=== PATIENT | female | born 1955 | race Caucasian/White ===

== ENCOUNTER 2023-09-06 15:26 | Emergency (ER) | payer MEDICARE, OTHER, SELFPAY ==
[2023-09-06 15:30] VITALS: BP 156/86; PULSE 67; RESP 16; TEMP 37; O2SAT 99; BMI 26.9
--- NOTE | 2023-09-06 15:41 | ED.SKABFB1 ---
HPI - Skin/Abscess/Foreign Bdy General Chief complaint: Skin/Abscess/Foreign Body Stated complaint: LUMP Time Seen by Provider: 09/06/23 15:28 Source: patient Mode of arrival: walk-in Limitations: no limitations History of Present Illness HPI narrative: Patient developed a small pustule to the right labia - lower aspect near the skin of the perineum. No systemic complaints such as fever or vomiting. She is concerned about a possible infection and whether or not it needs to be lanced. Related Data Previous Rx's ?Medication ?Instructions ?Recorded cephalexin 500 mg capsule 500 mg PO QID 7 days #28 caps 09/06/23 Allergies Allergy/AdvReac Type Severity Reaction Status Date / Time tetracycline Allergy Mild Rash Verified 09/06/23 15:30 Exam Narrative Exam Narrative: Nurses notes and vital signs reviewed and patient is not hypoxic. afebrile General: Well-appearing and in no apparent distress. Skin: Warm, dry, no pallor noted. No rash. Cardiovascular: Regular Rate and Rhythm without murmur, gallop or rub. Respiratory: No accessory muscle use or respiratory distress. Lungs are clear to auscultation, no wheezing, rales or rhonchi Genital: proctored exam with ED nurse Cathie Parada present. Small pustule to the inferior right labia majora near where it meets the perineum. No surrounding erythema or associated abscess or induration. Neurological: A&O x4. No cranial nerve dysfunction observed. No truncal ataxia. Moves all extremities. Sensation intact. Psychiatric: Cooperative and interactive. Normal mood and affect. Constitutional Vital Signs, click to edit/add: Last Vital Signs Temp 98.6 F 09/06/23 15:30 Pulse 67 09/06/23 15:30 Resp 16 09/06/23 15:30 BP 156/86 H 09/06/23 15:30 Pulse Ox 99 09/06/23 15:30 Course Vital Signs Vital signs: Vital Signs Temperature 98.6 F 09/06/23 15:30 Pulse Rate 67 09/06/23 15:30 Respiratory Rate 16 09/06/23 15:30 Blood Pressure 156/86 H 09/06/23 15:30 Pulse Oximetry 99 09/06/23 15:30 Temperature 98.6 F 09/06/23 15:30 Pulse Rate 67 09/06/23 15:30 Respiratory Rate 16 09/06/23 15:30 Blood Pressure 156/86 H 09/06/23 15:30 Pulse Oximetry 99 09/06/23 15:30 MDM - Skin/Abscess/Foreign Bdy MDM Narrative Medical decision making narrative: As I applied pressure to the pustule during the exam I was able to remove the head and only a small area of skin break was left. The patient was informed of this along with my exam findings, diagnosis and treatment plan. Patient discharged home with prescription for Keflex tabs. ED return if she develops any worrisome symptoms. Discharge Plan Discharge Stand Alone Forms: Portal Instructions Chief Complaint: Skin/Abscess/Foreign Body Clinical Impression: Pustule Patient Disposition: Home, Self-Care Time of Disposition Decision: 15:46 Prescriptions / Home Meds: New cephalexin 500 mg capsule 500 mg PO QID 7 Days Qty: 28 0RF Print Language: Turkmen Instructions: Acute Wounds (ED) Referrals: CLEMENTINE FORREST [Primary Care Provider] - 1 week
== END 2023-09-06 15:57 | disposition home or self-care (01) ==
PROVIDERS: Emergency Provider Emergency Medicine; PCP Family Medicine
DX: L08.9 Local infection of the skin and subcutaneous tissue, unspecified (principal)
CPT/HCPCS: 99283

== ENCOUNTER 2023-10-03 12:30 | Outpatient (OUT) | payer MEDICARE, OTHER, SELFPAY ==
--- NOTE | 2023-10-03 12:32 | MM_ITS ---
Patient Name: ALDO RUFFIN MR#: [id number] : 1955 Exam Date: 10/03/2023 Ordering Doctor: DR CLEMENTINE FORREST RADIOLOGY REPORT PROCEDURE: MM TOMOSYNTHESIS SCREENING BI COMPARISON: MG MAMM SCREEN 3D KORY CAD, 03/09/2021. INDICATIONS: screening Calculator Name NCI Breast Cancer Risk Assessment Tool 5 Year Breast Cancer Risk 2.10% Lifetime Breast Cancer Risk 7.00% Personal Breast Cancer No Personal Ovarian Cancer No Treatments None Family Cancers Grandmother-paternal with breast cancer at age 80; Aunt-paternal with breast cancer at age 45; Daughter with ewings sarcoma cancer at age 15; Brother with renal cancer at age 67. LOCATION: [facility] BREAST COMPOSITION: There are scattered areas of fibroglandular density. FINDINGS: DIAGNOSTIC CATEGORY 1--NEGATIVE. NO CHANGE FROM COMPARISON ASSESSMENT. Scattered benign-appearing calcifications are present. Scattered benign-appearing lymph nodes are present. RIGHT BREAST: No significant suspicious finding. LEFT BREAST: No significant suspicious finding. RECOMMENDATIONS: ROUTINE MAMMOGRAM AND CLINICAL EVALUATION IN 12 MONTHS. PLEASE NOTE: A NORMAL MAMMOGRAM DOES NOT EXCLUDE THE POSSIBILITY OF BREAST CANCER. A CLINICALLY SUSPICIOUS PALPABLE LUMP SHOULD BE BIOPSIED. Dictated by: Baldev Huggins MD on 10/03/2023 at 13:30 Approved by: Baldev Huggins MD on 10/03/2023 at 13:33
== END 2023-10-03 12:31 | disposition home or self-care (01) ==
LOC: MAMMO 12:30
PROVIDERS: PCP Family Medicine; Visit Provider Family Medicine
DX: Z12.31 Encounter for screening mammogram for malignant neoplasm of breast (principal); Z80.3 Family history of malignant neoplasm of breast; Z80.51 Family history of malignant neoplasm of kidney; Z80.8 Family history of malignant neoplasm of other organs or systems
CPT/HCPCS: 77063; 77067

== ENCOUNTER 2023-10-23 07:55 | Outpatient (OUT) | payer MEDICARE, OTHER, SELFPAY ==
[2023-10-23 08:48] LABS: Basophils Absolute Auto 0.1 10^3/uL (0.0-0.1); Basophils Percent Auto 0.8 % (0.2-2.0); Eosinophils Absolute Auto 0.1 10^3/uL (0.0-0.7); Eosinophils Percent Auto 1.9 % (0.9-7.0); Hematocrit 37.4 % (36.0-48.0); Hemoglobin 12.1 g/dL (12.0-16.0); Immature Granulocytes Abs Auto 0.01 10^3/uL (0.00-0.03); Immature Granulocytes Pct Auto 0.2 % (0.0-0.5); Lymphocytes Absolute Auto 1.9 10^3/uL (1.2-3.8); Lymphocytes Percent Auto 31.6 % (20.5-60.0); Mean Corpuscular HGB Conc 32.4 g/dL (29.9-35.2); Mean Corpuscular Hemoglobin 29.4 pg (26.7-34.0); Mean Platelet Volume 9.4 fL (9.5-13.5); Monocytes Absolute Auto 0.5 10^3/uL (0.3-0.8); Monocytes Percent Auto 8.2 % (1.7-12.0); Neutrophils Absolute Auto 3.4 10^3/uL (1.4-6.5); Neutrophils Percent Auto 57.3 % (43.0-75.0); Platelet Count 239 10^3/uL (150-450); Red Blood Count 4.11 10^6/uL (4.20-5.40); Red Cell Distribution Width 11.9 % (11.0-15.0); White Blood Count 5.9 10^3/uL (4.0-11.0)
[2023-10-23 09:44] LABS: Alanine Aminotransferase 28 U/L (14-59); Albumin Globulin Ratio 1.1; Albumin Level 3.5 g/dL (3.4-5.0); Alkaline Phosphatase 100 U/L (46-116); Anion Gap 10.1; Aspartate Amino Transferase 21 U/L (15-37); BUN Creatinine Ratio 18.1; Bilirubin Total 0.5 mg/dL (0.2-1.0); Carbon Dioxide 28.7 mmol/L (21.0-32.0); Chloride 105 mmol/L (98-107); Estimated GFR (African America >60 (>=60); Estimated GFR (Non-African Ame >60 (>=60); Globulin 3.3 g/dL; Glucose 95 mg/dL (74-106); Potassium 3.8 mmol/L (3.5-5.1); Sodium 140 mmol/L (136-145); Total Protein 6.8 g/dL (6.4-8.2)
== END 2023-10-23 07:56 | disposition home or self-care (01) ==
LOC: LAB 07:55
PROVIDERS: PCP Family Medicine; Visit Provider Family Medicine
DX: F41.9 Anxiety disorder, unspecified (principal); M19.041 Primary osteoarthritis, right hand; M19.042 Primary osteoarthritis, left hand
CPT/HCPCS: 36415; 80053; 85025

== ENCOUNTER 2025-01-27 15:50 | Outpatient (OUT) | payer MEDICARE, OTHER, SELFPAY ==
--- OUTSIDE RECORDS SUMMARY | 2024-07-23 08:15 | XMS_ITS ---
Author Organization [facility] in [place] Address [address] [place] [address] Care Team Providers Care Payroll Examiner Name Role Phone Maria Antonia Duque Primary Care Provider Provider, Radiology Unavailable [phone] REASON FOR VISIT Radiology Billing Encounters Encounter Location Date Provider Diagnosis Radiology [address] [address] 07/23/2024 Radiology Provider Cyst of kidney, acquired N28.1 and Nontoxic multinodular goiter E04.2 Assessments Encounter Date Diagnosis (ICD Code) Assessment Notes Treatment Notes Treatment Clinical Notes Section Notes 07/23/2024 Cyst of kidney, acquired (ICD-10 - N28.1) 07/23/2024 Nontoxic multinodular goiter (ICD-10 - E04.2) Plan Of Treatment Next Appt Details Provider Name:Maria Antonia arteaga, 02/11/2025 10:30:00 AM, [address] [place], [address], Progress Notes * Francy RUFFIN MDOB:[birth year] (69 yo F)Acc No.[id number]:07/23/2024 Progress Note Patient: Francy VARGAS Provider: Sunitha adiology Provider :1955 A ge:69 Y S ex:Female Date:07/23/2024 Address:[address] [place] [address] [place], [id number] Pcp:Maria Antonia Duque Subjective: * Chief Complaints: * R adiology Billing * Active Problem List F41.9 Anxiety Modified On:03/21/2023/U Status:confirmed G47.00 Insomnia, unspecifie d type Modified On:02/02/2022/U Status:confirmed M19.041 Primary osteoarthrit is, right hand Modified On:03/21/2023U Status:confirmed M19.042 Primary osteoarthrit is, left hand Modified On:03/21/2023U Status:confirmed E04.2 Nontoxic multinodula r goiter Modified On:06/26/2024 Status:confirmed * Medical History: * Surgical History: * Hospitalization/Major Diagno stic Procedure: * Medications: Objective: * Vitals: Assessment: * Assessment: 1. C yst of kidney, acquired - N28.1 2 . N ontoxic multinodular goiter - E04.2 Plan: * Treatment: * Procedure Codes: 7 6775 US EAM ABDO BACK WALL, [id number] US EXAM OF HEAD AND NECK * * Sign off status: Completed Visit Status: C HK (Check Out) true * Provider: R adiology Provider Date: 0 07/23/2024 Generated for González jain/Iván/Lylesmitting on: 0 01/27/2025 03:53 PM EDT
--- OUTSIDE RECORDS SUMMARY | 2024-07-23 08:50 | XMS_ITS ---
Author Organization [facility] [place] Address [address] [place] [address] Care Team Providers Care Automatic Tire Tester Name Role Phone Maria Antonia Duque Primary Care Provider Provider, Lab Unavailable [phone] REASON FOR VISIT gf Encounters Encounter Location Date Provider Diagnosis [facility] [place] [address] [place] [address] 07/23/2024 Lab Provider Plan Of Treatment Next Appt Details Provider Name:Maria Antonia arteaga, 02/11/2025 10:30:00 AM, [address] [place], [address], Progress Notes * Francy RUFFIN MDOB:[birth year] (69 yo F)Acc No.[id number]:07/23/2024 UNLOCKED PROGRESS NOTE Progress Note Patient: Tal Francy TA Provider: Leo perez Provider :1955 A ge:69 Y S ex:Female Date:07/23/2024 Address:[address] [place], [id number] Pcp:Maria Antonia Duque Check In:12:48 PM ESTCheck O ut:12:56 PM EST Subjective: * Chief Complaints: * 1 . Gf. * Medical History: Objective: * Vitals: Assessment: Plan: * Treatment: * * Electronic signature of Lab Provider on 01/27/2025 at 03:53 PM EDT Sign off status: Pending Visit Status: James MONROY (Check Out) * Provider: Leo perez Provider Date: 0 07/23/2024 Generated for González jain/Iván/Anastasiia on: 0 01/27/2025 03:53 PM EDT
--- OUTSIDE RECORDS SUMMARY | 2025-01-26 07:15 | XMS_ITS ---
Author Organization [facility] [place] Address [address] [place] [address] Care Team Providers Care Manager Digital Ad Operations Name Role Phone Maria Antonia Duque Primary Care Provider [phone] Allergies Allergen (clinical drug ingredient) Drug/Non Drug Allergy documented on EMR Reaction Allergy Type Onset Date Status tetracycline Tetracycline hives Drug Allergy A ctive Results Component Value Reference Range Notes SED RATE and CRP (Not yet re viewed by provider) Interpretation: Performing Lab:[facility], [address] [place], [address] [phone] Notes/Report: FACILITY: DR DUQUE - OFFICE [id number] SED RATE WEST. 24 (0 - 25) MM/HR CRP EXTENDED RANGE 1.47 (0.00 - 5.00) MG/L REASON FOR VISIT joint/muscle stiffness Medications Medication SIG (Take, Route, Frequency, Duration) Notes Start Date End Date Status Loratadine 10 MG 1 tablet Orally Once a day Active Multivitamin Active Xanax 0.25 MG 1 tablet Orally Twic e a day prn anxiety for 30 days 07/04/2024 Active ZyrTEC Allergy 10 MG 1 tablet Orally Onc e a day for 30 day(s) Not-Taking Social History Tobacco Use: Social History Observation Description Date Details (start date - stop date) Never Smoker NA - NA Tobacco Use/Smoking Question Answer Notes Patient is a nonsmoker Section Notes: , Problems Problem Type SNOMED Code ICD Code Onset Dates Problem Status W/U Status Risk Notes Problem 46472684 Other chronic pain (G89.29) Active confirmed Problem 02854623 Cervicalgia (M54.2) Active confirmed Vital Signs Weight 153.0 lbs 01/26/2025 Height 64 in 01/26/2025 Blood pressure systolic 126 mm Hg 01/27/20 25 Blood pressure diastolic 78 mm Hg 025 Heart Rate 64 /min 01/26/2025 Respiratory Rate 16 /min 01/26/2025 BMI 26.26 kg/m2 01/26/2025 Oximetry 98 % 01/26/2025 Encounters Encounter Location Date Provider Diagnosis [facility] [address] [place] [address] 01/26/2025 Maria Antonia Duque Pain in right hip M25.551 ; Other chronic pain G89.29 and Cervicalgia M54.2 Assessments Encounter Date Diagnosis (ICD Code) Assessment Notes Treatment Notes Treatment Clinical Notes Section Notes 01/26/2025 Pain in right hip (ICD-10 - M25.551) Check sed/CRP and also get xrays 01/26/2025 Other chronic pain (ICD-10 - G89.29) Consider meloxicam 01/26/2025 Cervicalgia (ICD-10 - M54.2) get xrays and check inflmmatory markers Plan Of Treatment Treatment Notes Assessment Notes Pain in right hip Check sed/CRP and al so get xrays Other chronic pain Consider meloxicam Cervicalgia get xrays and check inflmmatory markers Pending Test Test Name Order Date XR Cervical Spine (4> views) 01/26/2025 XR Hip RT AP and Lat * 01/26/2025 SED RATE and CRP 01/26/2025 Next Appt Details Provider Name:Maria Antonia Marc es, 02/11/2025 10:30:00 AM, [address] [place], [address], Progress Notes * Francy RUFFIN MDOB:[birth year] (69 yo F)Acc No.[id number]:01/26/2025 UNLOCKED PROGRESS NOTE Established Patient: Francy VARGAS Provider: Maritza Duque MD :1955 A ge:69 Y S ex:Female Date:01/26/2025 Address:[facility] [place], [id number] Check In:11:07 AM ESTCheck O ut:12:12 PM EST Subjective: * Chief Complaints: * 1 . Joint/muscle stiffness. * HPI: G eneral: patient presents today for joint stiffness- RM Jul [place], was very hard [place] the mountain when they were hiking.She had some hip pain with that but was ok after that September, [facility] - started having neck pain and stiffness, like she couldn't hold head up. 10/11 - started doing exercises that her sister had from her doctor. Also took ibu. Got better but still not great Around beginning of October, became more stiff in her hips. -started aqua fit classes in OctoberNovember 22, went to [place], and was really sore Started doing more aquatherapy, about 5 days a week. Went [place] [employer] [place] later in November, pool most places they stayed. Did ok. Some days are better than other, then she will have a rough day or 2. Traveling longer distances in the car are rough. Pt wonders about PMR - Since it it mostly neck/upper back and shoulders, as well as hips/low back - she does ok on days that she takes ibu but only takes it when she really needs it, otherwise it upsets her stomach. -sometimes really hard to get moving when she gets up, but then better once moving. Yesterday, walking down a ramp at the [employer] game, really hurt her hips and low back. Downward slope is worse. Worse pain on the right side Did have any old injury in 2012, and ended up having MRI with Dr. Herrera, and had some slight tears, did PT and lots of things for about 2 years before that got better. Allergies are not great - [facility] Sirisha tends to raise her BP. For awhile, the [facility] was keeping her awake at night. * ROS: G eneral/Constitutional: Chills d enies. F atigue d enies. F ever d enies. H EENT: Nasal congestion d enies. S ore throat d enies.?Runny Nose D enies. E ar Pain D enies. C ardiovascular: Lower Extremity Edema d enies. C hest pain d enies.?Palpitations d enies. R espiratory: Cough d enies. S hortness of breath d enies. W heezing d enies. G astrointestinal: Abdominal pain d enies. C onstipation d enies. D iarrhea d enies. N ausea d enies. G enitourinary: Urgency d enies. F requent urination d enies. P ainful urination d enies. M usculoskeletal: Body aches A dmits. P ainful joints a dmits. W eakness d enies. S kin: Rash d enies. N eurologic: Dizziness d enies. H eadache d enies. ? P sychiatric: Depression d enies. A nxiety d enies. D ifficulty sleeping d enies. * Medical History: A nxiety, Insomnia, COVID 06/01/21, 01/06, Multinodular thyroid, Left kidney cyst. * Surgical History: T onsils , , Complete Hysterctomy . * Family History: F ather: alive, skin cancer, diagnosed with Other malignant neoplasm of unspecified site, Diabetes mellitus without mention of complication, type II or unspecified type, not stated as uncontrolled. M other: alive, skin cancer, diagnosed with Other malignant neoplasm of unspecified site, Unspecified essential hypertension, Unspecified heart disease. Sister - 1/2 of thyroid removed Brother - kidney cancer Bicuspid aortic valve - GM, niece, likely nephew. * Social History: T obacco Use: T obacco Use/Smoking P atient is a n onsmoker M arried,. * Medications: T aking Loratadine 10 MG Tablet 1 tablet Orally Once a day , Taking Multivitamin , Taking Xanax(ALPRAZolam) 0.25 MG Tablet 1 tablet Orally Twice a day prn anxiety , Not-Taking/PRN ZyrTEC Allergy(Cetirizine HCl) 10 MG Tablet 1 tablet Orally Once a day , Medication List reviewed and reconciled with the patient * Allergies: T etracycline: hives. Objective: * Vitals: W t:153.0lbs, Ht: 64 in, BP:126/78mm Hg, HR:64/min, RR:16/min, BMI:26.26Index, Oxygen sat %:98%, Ht-cm: 162.56 cm, Wt-k.4 kg. * Examination: G eneral Examination: GENERAL APPEARANCE: N o acute distress, Well hydrated, Well Developed. NECK: N tate supple, No thyromegaly, No cervical LAD. LUNGS: C lear to auscultation bilaterally, No wheezes, rales, rhonchi. CARDIO: R egular rate and rhythm, No murmurs, rubs, gallops. ABDOMEN: S oft, nontender, not distended, normal bowel sounds. SKIN: Warm and Dry, No suspicious lesions. EXTREMITIES: No edema. NEUROLOGIC/PSYCHIATRIC: A lert, Oriented,mood and affect appropriate. Assessment: * Assessment: 1. P ain in right hip - M25.551 (Primary) 2 . O ther chronic pain - G89.29? 3. C ervicalgia - M54.2 Plan: * Treatment: 2. O ther chronic pain L AB: SED RATE and CRP (Collection Date & Time - 01/26/2025 04:22 PM) I maging: XR Cervical Spine (4> views) I maging: XR Hip RT AP and Lat * Notes: Consider meloxicam 3. C ervicalgia L AB: SED RATE and CRP (Collection Date & Time - 01/26/2025 04:22 PM) I maging: XR Cervical Spine (4> views) Notes: get xrays and check inflmmatory markers * Labs: * L ab: SED RATE and CRP (Collection Date & Time - 01/26/2025 04:22 PM) * * Electronic signature of Nahid Duque MD, [id number] on 01/27/2025 at 03:53 PM EDT Sign off status: Pending Visit Status: C HK (Check Out) * Provider: Maritza Duque MD Date: 01/26/2025 Generated for Bushrai susy/Iván/Lylesmitting on: 01/27/2025 03:53 PM EDT History and Physical Notes * Examination Category Sub-Category Detail Notes Category Not es General Examination GENERAL APPEARANCE: No acute distress, Well hydrated, Well Developed NECK: Neck supple, No thyr omegaly, No cervical LAD CARDIO: Regular rate and rhy thm, No murmurs, rubs, gallops LUNGS: Clear to auscultatio n bilaterally, No wheezes, rales, rhonchi ABDOMEN: Soft, nontender, not distended, normal bowel sounds SKIN: Warm and Dry, No stanley picious lesions EXTREMITIES: No edema ENMT: NEUROLOGIC/PSYCHIATRIC: Alert, Oriented, mood and affect appropriate
--- OUTSIDE RECORDS SUMMARY | 2025-01-27 15:53 | XMS_ITS | Clinical Summary ---
Author Organization [facility] Address [address] [place] [address] Phone Care Team Providers Care Fermentologist Name Role Phone Maria Antonia Duque MD Primary Care Provider [phone] Social History Tobacco Use Types Packs/Day Years Used Date Smoking Tobacco: Never Assessed Comments Unknown Sex and Gender Information Value Date Recorded Sex Assigned at Not on file Legal Sex Female 11:08 PM EST Gender Identity Not on file Sexual Orientation Not on file Last Filed Vital Signs Vital Sign Reading Time Taken Comments Blood Pressure 128/70 05/18/2021 1:54 PM EST Pulse 73 05/18/2021 1:54 PM EST Temperature - - Respiratory Rate - - Oxygen Saturation - - Inhaled Oxygen Concentration - - Weight 65.3 kg (144 lb) 05/18/2021 1:49 PM EST Height 160 cm (5' 3 ) 05/18/2021 1:49 PM EST Body Mass Index 25.51 05/18/2021 1:49 PM EST Plan of Treatment Not on file Care Teams Fermentologist Relationship Specialty Start Date End Date Maria Antonia Duque MD [address] [place] [id number] PCP - General 06/18/99
--- OUTSIDE RECORDS SUMMARY | 2025-01-27 15:54 | XMS_ITS | Patient Health Record ---
Author Organization [facility] in [place] Address [address] [place] [address] Care Team Providers Care Scallop Binder Name Role Phone Maria Antonia Duque Primary Care Provider [phone] Provider, Lab Unavailable [phone] Provider, Radiology Unavailable [phone] Allergies Allergen (clinical drug ingredient) Drug/Non Drug Allergy documented on EMR Reaction Allergy Type Onset Date Status tetracycline Tetracycline hives Drug Allergy A ctive Results Component Value Reference Range Notes SED RATE and CRP (Not yet re viewed by provider) Interpretation: Performing Lab:[facility], [address] [place], [address] [phone] Notes/Report: FACILITY: DR DUQUE - OFFICE [id number] SED RATE WEST. 24 (0 - 25) MM/HR CRP EXTENDED RANGE 1.47 (0.00 - 5.00) MG/L T3 FREE, T4 FREE and TSH Reviewed date:11/27/2024 01:50:51 PM Interpretation:Normal Performing Lab:[facility], [address] [place], [address] [phone] Notes/Report: 1C FACILITY: [facility] [id number] T3 - FREE 3.69 (2.45 - 5.93) PG/ML T4 - FREE 1.19 (0.78 - 2.44) UG/DL hTSH 1.60 (0.470 - 4.680) mIU/L Cologuard Reviewed date:05/01/2024 04:56:34 PM Interpretation:negative Performing Lab: Notes/Report: COLOGUARD RESULT REPORTABLE Negative Negative NEGATIVE TEST RESULT. A negative Cologuard result indicates a low likelihood that a colorectal cancer (CRC) or advanced adenoma (adenomatous polyps with more advanced pre-malignant features) is present. The chance that a person with a negative Cologuard test has a colorectal cancer is less than 1 in 1500 (negative predictive value >99.9%) or has an advanced adenoma is less than 5.3% (negative predictive value 94.7%). These data are based on a prospective cross-sectional study of 10,000 individuals at average risk for colorectal cancer who were screened with both Cologuard and colonoscopy. (John Juarez. et al, N Engl J Med 2014;370(14):1012-1824) The normal value (reference range) for this assay is negative. COLOGUARD RE-SCREENING RECOMMENDATION: Periodic colorectal cancer screening is an important part of preventive healthcare for asymptomatic individuals at average risk for colorectal cancer. Following a negative Cologuard result, the [place] [employer] and U.S. Multi-Society Task Force screening guidelines recommend a Cologuard re-screening interval of 3 years. References: [place] [employer] Guideline for Colorectal Cancer Screening: https://www.cancer.org/c ancer/ffmpw-ruleau-qysqv r/vebksgptt-nyywlbhpr-ws aging/acs-recommendation s.html.; Erwin QUACH, Alejandro CAMPBELL, Wes FloydK, Colorectal Cancer Screening: Recommendations for Physicians and Patients from the U.S. Multi-Society Task Force on Colorectal Cancer Screening , Am J Gastroenterology 2017; 112:3260-0439. TEST DESCRIPTION: Composite algorithmic analysis of stool DNA-biomarkers with hemoglobin immunoassay. Quantitative values of individual biomarkers are not reportable and are not associated with individual biomarker result reference ranges. Cologuard is intended for colorectal cancer screening of adults of either sex, 45 years or older, who are at average-risk for colorectal cancer (CRC). Cologuard has been approved for use by the U.S. FDA. The performance of Cologuard was established in a cross sectional study of average-risk adults aged 50-84. Cologuard performance in patients ages 45 to 49 years was estimated by sub-group analysis of near-age groups. Colonoscopies performed for a positive result may find as the most clinically significant lesion: colorectal cancer [4.0%], advanced adenoma (including sessile serrated polyps greater than or equal to 1cm diameter) [20%] or non- advanced adenoma [31%]; or no colorectal neoplasia [45%]. These estimates are derived from a prospective cross-sectional screening study of 10,000 individuals at average risk for colorectal cancer who were screened with both Cologuard and colonoscopy. (John Juarez. et al, N Engl J Med 2014;370(14):8524-2127.) Cologuard may produce a false negative or false positive result (no colorectal cancer or precancerous polyp present at colonoscopy follow up). A negative Cologuard test result does not guarantee the absence of CRC or advanced adenoma (pre-cancer). The current Cologuard screening interval is every 3 years. ([place] [employer] and U.S. Multi-Society Task Force). Cologuard performance data in a 10,000 patient pivotal study using colonoscopy as the reference method can be accessed at the following location: www.Stageit/result s. Additional description of the Cologuard test process, warnings and precautions can be found at www.Ischemia Carerd.SaaSAssurance. US Thyroid Reviewed date:11/27/2024 01:50:51 PM Interpretation:Benign nodules Performing Lab: Notes/Report: [facility], [place] [address] Name: Ana Luisa Ceja : 1955 Gender: F Referring Provider: Maria Antonia Duque Exam: ULTRASOUND THYROID Exam Start: 07/23/2024 Accn: [id number] History: Nontoxic multinodular goiter. Ultrasound examination of the thyroid. Findings: The right lobe measures 2.6 x 2.1 x 6.6 cm and the left lobe measures 2.4 x 2.3 x 5.4 cm. Isthmus has a maximum thickness of 5.6 mm. Several benign- appearing nodules within the thyroid, as well as benign cysts, having a maximum diameter of 6 mm on the right. No suspicious nodule within the thyroid. IMPRESSION: 1. No suspicious nodule in the thyroid. 2. Benign changes in the thyroid. Transcribed by: YADIRA VERDUZCO 07/23/2024 14:25 Sincerely, Baldev Sanchez MD Electronically Signed: 07/23/2024 14:39 Thank you for referring FRANCY RUFFIN to the [facility], [facility]. [facility] - [facility]Daniel&Baldev, [id number] [facility], [place] [address] Name: Ana Luisa Ceja : 1955 Gend er: F Referring Provider: Maria Antonia Duque Exam: ULTRASOUND THYROID Exam Start: 07/23/19 Accn: [id number] ___ History: Nontoxic multinodular goiter. Ultrasound examinati on of the thyroid. Findings: The right lobe measures 2.6 x 2.1 x 6.6 cm and the left lobe measures 2.4 x 2.3 x 5.4 cm. Isthmus has a maximum thickness of 5.6 mm. Several benign-appearing nodules within the thyroid, as well as benign cysts, having a maximum diameter of 6 mm on the right. No suspicious nodule within the thyroid. IMPRESSION: 1. No suspicious nod ule in the thyroid. 2. Benign changes in the thyroid. Transcribed by: YADIRA VERDUZCO 07/23/2024 14:25 SincerelDaniel barker David MD Electronically Leslee d: 07/23/2024 14:39 Thank you for referr vlad RUFFIN to the [facility]. US Renal Reviewed date:11/27/2024 01:50:51 PM Interpretation:3.1cm Benign cyst Lt kidney Performing Lab: Notes/Report: [facility] [employer] [place] [address] Name: Ana Luisa Ceja : 1955 Gender: F Referring Provider: Maria Antonia Duque Exam: ULTRASOUND RENAL Exam Start: 07/23/2024 Accn: [id number] History: Cyst of kidney. Ultrasound examination of the kidneys. Findings: The right kidney measures 4.0 x 3.9 x 10.5 cm and the left kidney measures 4.4 x 5.0 x 11.5 cm. No solid mass within the kidneys and no hydronephrosis. 2.7 x 2.2 x 3.1 cm benign cyst in the left kidney. IMPRESSION: 1. 3.1 cm benign cyst in the left kidney. 2. Kidneys are otherwise negative. Transcribed by: YADIRA VERDUZCO 07/23/2024 14:21 Sincerely, Baldev Sanchez MD Electronically Signed: 07/23/2024 14:22 Thank you for referring FR[facility] - [facility]Daniel[facility]Baldev, [id number] [place] [address] Name: Ana Luisa Ceja : 1955 Gend er: F Referring Provider: Maria Antonia Duque Exam: ULTRASOUND RENAL Exam Start: 07/23/19 Accn: [id number] ___ History: Cyst of kidney. Ultrasound examinati on of the kidneys. Findings: The right kidney measures 4.0 x 3.9 x 10.5 cm and the left kidney measures 4.4 x 5.0 x 11.5 cm. No solid mass within the kidneys and no hydronephrosis. 2.7 x 2.2 x 3.1 cm benign cyst in the left kidney. IMPRESSION: 1. 3.1 cm benign cys t in the left kidney. 2. Kidneys are otherwise negative. Transcribed by: YADIRA VERDUZCO 07/23/2024 14:21 Sincerely, Baldev Sanchez MD Electronically Leslee d: 07/23/2024 14:22 Thank you for referr vlad RUFFIN to the [facility], [facility]. Reason For Referral No Information Medications Medication SIG (Take, Route, Frequency, Duration) [...] Question Answer Notes Patient is a nonsmoker Alcohol Screen (Audit-C) Question Answer Notes Did you have a drink containing alcohol in the p ast year? No Points 0 Interpretation Negative Section Notes: , , , , , , , , , , , , Problems Problem Type SNOMED Code ICD Code Onset Dates Problem Status W/U Status Risk Notes Problem 998405993 Nontoxic multinodular goiter (E04.2) Active confirmed Problem 82437481 Other chronic pain (G89.29) Active confirmed Problem 071138146029676 Primary osteoarthritis, right hand (M19.041) Active confirmed Problem 293282126569860 Primary osteoarthritis, left hand (M19.042) Active confirmed Problem 96667823 Cervicalgia (M54.2) Active confirmed Problem 81726227 Anxiety (F41.9) Active confirmed Problem 095455530 Insomnia, unspecified type (G47.00) Active confirmed Vital Signs Heart Rate 64 /min 01/26/2025 Respiratory Rate 16 /min 01/26/2025 Blood pressure diastolic 78 mm Hg 01/26/2025 Oximetry 98 % 01/26/2025 Height 64 in 01/26/2025 Blood pressure systolic 126 mm Hg 01/26/2025 Weight 153.0 lbs 01/26/2025 BMI 26.26 kg/m2 01/26/2025 Encounters Encounter Location Date Provider Diagnosis [address] [address] 02/21/2024 Maria Antonia Duque Encounter for screening for malignant neoplasm of colon Z12.[address] [address] 06/26/2024 Maria Antonia Duque Nontoxic multinodula r goiter E04.2 ; Cyst of kidney, acquired N28.1 ; Anxiety F41.9 ; Primary osteoarthritis, right hand M19.041 ; Primary osteoarthritis, left hand M19.042 and Encounter for Medicare annual wellness exam Z00.[address] [address] 07/01/2024 Maria Antonia Duque Anxiety F41.9 [facility] [place] [address] [place] [address] [place] [address] 07/23/2024 Lab Provider Radiology [address] [address] 07/23/2024 Radiology Provider Cyst of kidney, acquired N28.1 and Nontoxic multinodular goiter E04.[address] [address] 01/26/2025 Maria Antonia Duque Pain in right hip M25.551 ; Other chronic pain G89.29 and Cervicalgia M54.2 Assessments Encounter Date Diagnosis (ICD Code) Assessment Notes Treatment Notes Treatment Clinical Notes Section Notes 06/26/2024 Nontoxic multinodular goiter (ICD-10 - E04.2) Get thyroid US to further characterize thyroid nodules Also check thyroid labs to make sure the nodules are not causing issues 06/26/2024 Cyst of kidney, acquired (ICD-10 - N28.1) Get kidney US to further characterize left kidney cyst, especially with FH of kidney cancer in Brother 07/23/2024 Cyst of kidney, acquired (ICD-10 - N28.1) 01/26/2025 Other chronic pain (ICD-10 - G89.29) Consider meloxicam 01/26/2025 Pain in right hip (ICD-10 - M25.551) Check sed/CRP and also get xrays 02/21/2024 Encounter for screening for malignant neoplasm of colon (ICD-10 - Z12.11) 07/01/2024 Anxiety (ICD-10 - F41.9) 07/23/2024 Nontoxic multinodular goiter (ICD-10 - E04.2) 01/26/2025 Cervicalgia (ICD-10 - M54.2) get xrays and check inflmmatory markers 06/26/2024 Anxiety (ICD-10 - F41.9) refill of xanax to [facility] 06/26/2024 Primary osteoarthritis, right hand (ICD-10 - M19.041) STable, ibuprofen or tylenol as needed for arthritis 06/26/2024 Primary osteoarthritis, left hand (ICD-10 - M19.042) STable, ibuprofen or tylenol as needed for arthritis 06/26/2024 Encounter for Medicare annual wellness exam (ICD-10 - Z00.00) UTD on immunizations Neg cologuard 03/11 No further paps needed after hyster Next mamm due 10/10 Plan Of Treatment Pending Test Test Name Order Date XR Cervical Spine (4> views) 01/26/2025 XR Hip RT AP and Lat * 01/26/2025 SED RATE and CRP 01/26/2025 Next Appt Details Provider Name:Maria Antonia arteaga, 02/11/2025 10:30:00 AM, [address] [place], [address], Insurance Providers Payer Name Payer Address Payer Phone Subscriber Number Group Number Insured Name Patient Relationship to Insured Coverage Start Date Coverage End Date MEDICARE [place] [address] [address] [id number] Francy Ruffin Self - patient is the insured 1 MMO MEDICARE SUPPLE[employer] T [address] [place] [address] [id number] Francy Ruffin Self - patient is the insured 1 Medical (General) History Medical History History ICD Code Anxiety Insomnia COVID 06/01/21, 01/06 Multinodular thyroid Left kidney cyst Surgical History Surgery Date(Month/Year) Tonsils Complete Hysterctomy
--- OUTSIDE RECORDS SUMMARY | 2025-01-27 15:54 | XMS_ITS | Clinical Summary ---
Author Organization [facility] Address [address] [place] [address] Care Team Providers Care Company Manager Name Role Phone Maria Antonia Duque MD Unavailable [phone] Social History Tobacco Use Types Packs/Day Years Used Date Smoking Tobacco: Never Assessed Comments Unknown Sex and Gender Information Value Date Recorded Sex Assigned at Not on file Legal Sex Female 8:00 PM EDT Gender Identity Not on file Sexual Orientation Not on file Last Filed Vital Signs Vital Sign Reading Time Taken Comments Blood Pressure 122/60 05/30/2018 12:00 PM EST Pulse - - Temperature - - Respiratory Rate - - Oxygen Saturation - - Inhaled Oxygen Concentration - - Weight 70.8 kg (156 lb) 05/30/2018 12:00 PM EST Height 157.5 cm (5' 2 ) 05/30/2018 12:00 PM EST Body Mass Index 28.53 05/30/2018 12:00 PM EST Plan of Treatment Not on file Care Teams Company Manager Relationship Specialty Start Date End Date Maria Antonia Duque MD [address] [place] [address] PCP - External PCP Family Medicine 11/25/22
--- OUTSIDE RECORDS SUMMARY | 2025-01-27 15:54 | XMS_ITS | Clinical Summary ---
Author Organization [facility] Address [id number] [address] [place] [address] Care Team Providers Care Back Closer Name Role Phone Maria Antonia Duque MD Primary Care Provider [phone] Allergies Active Allergy Reactions Criticality Noted Date Comments Tetracycline 10/01/2022 Medications cetirizine (ZyrTEC) 10 mg tablet Take 1 tablet (10 mg total) by mouth in the morning. Active ALPRAZolam (XANAX) 0.25 mg tablet Take 1 tablet (0.25 mg total) by mouth nightly as needed for anxiety. Active acetaminophen (TYLENOL EXTRA STRENGTH) 500 mg tablet Take 2 tablets (1,000 mg total) by mouth every 6 (six) hours as needed for pain. 30 tablet 10/02/2022 Active ibuprofen (MOTRIN) 800 mg tablet Take 1 tablet (800 mg total) by mouth 3 (three) times a day. 21 tablet 10/02/2022 Active Social History Tobacco Use Types Packs/Day Years Used Date Smoking Tobacco: Never Smokeless Tobacco: Never Tobacco Cessation:Counseling Given: Not Answered Alcohol Use Standard Drinks/Week Comments Not Currently 0 (1 standard drink = 0.6 oz pur e alcohol) Childcare Answer Date Recorded Childcare Unknown 11/27/2018 Employment Answer Date Recorded Employment Unknown 11/27/2018 Hunger Screening Answer Date Recorded Within the past 12 months we worried whether our food would run out before we got money to buy more. Never True 10/01/2022 Within the past 12 months th e food we bought just didn't last and we didn't have money to get more. Never True 10/01/2022 Purpose - Life Answer Date Recorded Purpose and direction in life Unknown Comments Unknown Sex and Gender Information Value Date Recorded Sex Assigned at Not on file Legal Sex Female 10:37 PM EDT Gender Identity Not on file Sexual Orientation Not on file Last Filed Vital Signs Vital Sign Reading Time Taken Comments Blood Pressure 154/108 10/01/2022 9:32 PM EDT Pulse 69 10/01/2022 11:30 PM EDT Temperature 36.4 C (97.6 F) 10/01/2022 9:32 PM EDT Respiratory Rate 14 10/01/2022 11:30 PM EDT Oxygen Saturation 99% 10/01/2022 9:32 PM EDT Inhaled Oxygen Concentration - - Weight 70.3 kg (155 lb) 10/01/2022 9:32 PM EDT Height 157.5 cm (5' 2 ) 10/01/2022 9:32 PM EDT Body Mass Index 28.35 10/01/2022 9:32 PM EDT Plan of Treatment Health Maintenance Due Date Last Done Comments Depression Screening 1968 Tobacco Screening 1968 DTaP,Tdap and Td Vaccines (1 - Tdap) 02/08/1975 Zoster (Shingles) Vaccine (1 of 2) 02/08/2006 Fall Risk Screening 02/08/2021 Adult BMI Screening 10/02/2023 10/01/2022 Influenza Vaccine 02/16/2025 Medical Devices Not on file Insurance [employer]ICARE [employer] [place] Member Subscriber Plan / Payer (Ef fective 2022-Present) Name:Francy Orosco Relation to Subscriber:Self Name:Francy Orosco Payer ID:Not on file Type:Not on file Address: [place] [id number] Care Teams Back Closer Relationship Specialty Start Date End Date Maria Antonia Duque MD [address] [place] [phone] PCP - General Family Medicine 10/01/22
--- NOTE | 2025-01-27 16:13 | XR_ITS ---
The [address] [address] Patient Name: ALDO RUFFIN MRN: [id number] date: 1955 Sex: F Assigned Patient Location: [facility] Current Patient Location: [facility] Accession/Order Number: [id number] Exam Date: 01/27/2025 16:32 Report Date: 01/27/2025 16:33 At the request of: CLEMENTINE FORREST Procedure: XR cervical spine 5V CERVICAL SPINE 6 views: CLINICAL HISTORY: Chronic pain, Cervalgia COMPARISON: None FINDINGS: Vertebral body and disc space heights appear maintained. Facet joints appear unremarkable. No prevertebral soft tissue swelling. XR/XR cervical spine 5V IMPRESSION: NO ACUTE BONY PROCESS. Impression dictated by: Kyree Christopher Jr., D.O. 01/27/2025 4:33 PM Dictation Location: [place] [address] Electronically authenticated by: [id number] Y Date: 01/27/2025 16:33
--- NOTE | 2025-01-27 16:13 | XR_ITS ---
[address] [address] Patient Name: ALDO RUFFIN MRN: [id number] date: 1955 Sex: F Assigned Patient Location: [facility] Current Patient Location: [facility] Accession/Order Number: [id number] Exam Date: 01/27/2025 16:31 Report Date: 01/27/2025 16:32 At the request of: CLEMENTINE FORREST Procedure: XR hip RT min 2V RIGHT HIP - 2 views: CLINICAL HISTORY: Right hip pain COMPARISON: None FINDINGS: No acute bony process. Joint space of the right hip appears maintained. XR/XR hip RT min 2V IMPRESSION: NO ACUTE BONY PROCESS.. Impression dictated by: Kyree Christopher Jr., D.O. 01/27/2025 4:32 PM Dictation Location: [place] [address] Electronically authenticated by: [id number] Y Date: 01/27/2025 16:32
--- OUTSIDE RECORDS SUMMARY | 2025-01-27 17:08 | XMS_ITS | CCD ---
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 Name Role Phone ADRIANE, DR CLEMENTINE Rush Consulting Unavailable ADRIANE, DR CLEMENTINE Rush Primary Care Unavailable ADRIANE, DR CLEMENTINE Rush Admitting Unavailable ADRIANE, DR CLEMENTINE Rush Attending Unavailable ADRIANE, DR CLEMENTINE Rush Admitting Unavailable ADRIANE, DR CLEMENTINE Rush Attending Unavailable PENN LAIRD, DR AIRAM Singh Consulting Unavailable ADRIANE, DR CLEMENTINE Rush Consulting Unavailable ADRIANE, DR CLEMENTINE Rush Primary Care Unavailable ADRIANE, DR CLEMENTINE Rush Admitting Unavailable ADRIANE, DR CLEMENTINE Rush Attending Unavailable ADRIANE, DR CLEMENTINE Rush Consulting Unavailable Allergies Allergy Classification Reported Allergen(s) Allergy Type Date of Onset Reaction(s) Facility (1 source) Azithromycin Drug Allergy 06-06-2021 [facility] Repository (1 source) Tetracycline Drug Allergy 06-06-2021 [facility] Repository Problems Active Problems Problem Classification Problem Date Documented Da te Episodic/Chronic Immunizations and screening for infectious disease (1 source) Encounter for immunization; Translations: [ENCOUNTER FOR IMMUNIZATION] Onset: 06-07-2021 Episodic Viral infection (4 sources) COVID-19; Translations: [COVID-19] Onset: 06-06-2021 Past or Other Problems Problem Classification Problem Date Documented Da te Episodic/Chronic Other bone disease and musculoskeletal deformities (1 source) Other specified disorders of bone density and structure, unspecified site; Translations: [OTH D/O BONE DEN STRUCT UNS SITE] Onset: 03-24-2021 Episodic Other screening for suspected conditions (not mental disorders or infectious disease) (1 source) Encounter for screening mammogram for malignant neoplasm of breast; Translations: [ENC SCR MAMMO MALIG NEOPLASM BREAST] Onset: 03-24-2021 Episodic Residual codes; unclassified (1 source) Family history of malignant neoplasm of breast; Translations: [FAMILY HX MALIG NEOPLASM OF BREAST] Onset: 03-24-2021 Episodic Residual codes; unclassified (1 source) Family history of malignant neoplasm of kidney; Translations: [FAM HX MALIGNANT NEOPLASM KIDNEY] Onset: 03-24-2021 Episodic Residual codes; unclassified (1 source) Asymptomatic menopausal state; Translations: [ASYMPTOMATIC MENOPAUSAL STATE] Onset: 03-24-2021 Episodic Results Test Name Value Interpretation Reference Range Facil ity Office Visit (Cardiology)on 05-18-2021 Follow-up visit Diagnoses/Problems Assessed Abnormal EKG (794.31) (R94.31) Overweight with body mass index (BMI) of 25 to 25.9 in adult (278.02,V85.21) (E66.3,Z68.25) Never a smoker Orders Abnormal EKG IO EKG Electrocardiogram- 12 Lead; Status:Complete; Done: 18May2021 SocHx: Never a smoker Tobacco Use Screening; Status:Complete; Done: 18May2021 Patient Instructions By signing my name below, IArianna LPN, Scribe, attest that this documentation has been prepared under the direction and in the presence of Dr. Kin Saenz MD. All medical record entries made by the Surajibascencion were at my direction and personally dictated by me. I have reviewed the chart and agree that the record accurately reflects my personal performance of the history, physical exam, discussion and plan. Please bring all medicines, vitamins, and herbal supplements with you when you come to the office. Prescriptions will not be filled unless you are compliant with your follow up appointments or have a follow up appointment scheduled as per instruction of your physician. Refills should be requested at the time of your visit. Follow-up as needed only Chief Complaint ALDO RUFFIN is being seen for a consultation for an abnormal ECG. History of Present Illness Patient is seen in consultation at the request of her primary care physician. She is an individual who underwent an EKG for noncardiac reasons. Her EKG suggested poor anterior R wave progression which could also be interpreted as septal infarct. Patient states she may have had EKGs performed years ago but not recently. She is a never smoker nondiabetic who is normotensive and has a favorable lipid profile. There is no coronary disease in her siblings and she is unclear in regards to her parents. Overall it appears her risk for coronary disease is very low. She is aerobically very active and denies any anginal symptomatology or functional limitations that would suggest coronary disease. Her EKG is reviewed and we performed 1 as well demonstrating poor anterior R wave progression. I advised her that this electrophysiologic anomaly is probably not tax compliance representative coronary disease. I believe is due to rotation of the heart in the chest as opposed to a prior infarct. Advised her we could perform a stress test with isotope imaging to evaluate for infarct but I believe it to be inappropriate and unnecessary because I have very low suspicion of any coronary disease in this patient. The reason and rationale for this conclusion was explained in tremendous detail and she appears willing to accept our explanation for the abnormal EKG. Because of all the above we suggest no pharmacologic intervention and no testing. Because we doubt underlying heart disease I suggested she follow-up with us on an as-needed basis. Surgical History Problems History of section History of Complete colonoscopy Resolved Date: 18 Jun 2005 History of Hysterectomy total History of Tonsillectomy Past Medical History Problems History of cardiac murmur (V12.59) (Z86.79) Current Meds Medication NameInstruction ALPRAZolam 0.25 MG Oral TabletTAKE 1 TABLET BY MOUTH TWICE DAILY NEEDED FOR ANXIETY. ... (REFER TO PRESCRIPTION NOTES). Multi Vitamin TABSTAKE 1 TABLET DAILY. Zyrtec TABSTAKE 1 TABLET DAILY DIRECTED. Allergies Medication epinephrine Adverse Reaction; Tachycardia; Recorded By: Ariana Mcgrath; 05/18/2021 1:49:33 PM tetracycline Allergy; Rash; Recorded By: Ariana Mcgrath; 05/18/2021 1:49:33 PM Social History Problems Never a smoker No alcohol use No illicit drug use Occasional caffeine consumption decaf coffee daily Review of Systems Constitutional: not feeling tired. Eyes: no eyesight problems. ENT: no hearing loss and no nosebleeds. Cardiovascular: no intermittent leg claudication and as noted in HPI. Respiratory: no chronic cough and no shortness of breath. Gastrointestinal: no change in bowel habits and no blood in stools. Genitourinary: no urinary frequency. Skin: no skin rashes. Neurological: no seizures and no frequent falls. Psychiatric: no depression and not suicidal. All other systems have been reviewed and are negative for complaint. Vitals Vital Signs Recorded: 18May2021 01:54PMRecorded: [id number] 01:49PM Heart Rate73, Apical Zkhoqian107, RUE, Muuttnt188, LUE, Sitting Hbkqpomik81, RUE, Rwawgvo06, LUE, Sitting Height5 ft 3 in Ghidkw571 lb BMI Mbpcablwko38.51 kg/m2 BSA Calculated1.68 Tobacco Useb) No Fall Screeningc) Not medically indicated EKG done in office today Physical Exam Constitutional: alert and in no acute distress. Eyes: no erythema, swelling or discharge from the eye . Neck: neck is supple, symmetric, trachea midline, no masses and no thyromegaly . Pulmonary: no increased work of breathing or signs of respiratory distress and lungs clear to auscultation. Cardiovascular: carotid pulses 2+ bilaterally with no bruit , JVP was n (more content not included)... Normal [facility] MG MAMM SCREEN 3D KORY CADon 03-09-2021 MG MAMM SCREEN 3D KORY CAD Patient: ALDO RUFFIN Exam Date: 03/09/2021 : 1955 Gender:F Ordering : DR CLEMENTINE FORREST Admission #: [id number] Family : Order #: [id number] CLICK HERE TO VIEW EXAM RADIOLOGY REPORT PROCEDURE: MAMMOGRAM SCREENING 3D BILATERAL CAD COMPARISON: None. INDICATIONS: Screening mammography Calculator Name NCI Breast Cancer Risk Assessment Tool 5 Year Breast Cancer Risk 2.00% Lifetime Breast Cancer Risk 7.60% Personal Breast Cancer No Personal Ovarian Cancer No Treatments None Family Cancers Grandmother-paternal with breast cancer at age 80; Aunt-paternal with breast cancer at age 45; Daughter with ewings sarcoma cancer at age 15; Brother with renal cancer at age 67. LOCATION: [facility] BREAST COMPOSITION: Scattered areas fibroglandular density. FINDINGS: DIAGNOSTIC CATEGORY 2--BENIGN FINDING: Scattered benign-appearing calcifications are present. Scattered benign-appearing lymph nodes are present. RIGHT BREAST: No significant suspicious finding. LEFT BREAST: No significant suspicious finding. RECOMMENDATIONS: ROUTINE MAMMOGRAM AND CLINICAL EVALUATION IN 12 MONTHS. PLEASE NOTE: A NORMAL MAMMOGRAM DOES NOT EXCLUDE THE POSSIBILITY OF BREAST CANCER. A CLINICALLY SUSPICIOUS PALPABLE LUMP SHOULD BE BIOPSIED. Dictated by: Airam Hassan MD on 03/09/2021 at 14:26 Approved by: Airam Hassan MD on 03/09/2021 at 14:28 Normal [facility] XR DEXA BONE DENSITYon 03-09 XR DEXA BONE DENSITY EXAMINATION: XR DEXA BONE DENSITY, 03/09/2021 8:33 AM EDT HISTORY: Menopause present COMPARISON: None. TECHNIQUE: Dual-energy X-ray absorptiometry (DEXA) bone density study performed for the axial skeleton. FINDINGS: Bone mineral density AP spine L1-L4 measures 0.920 g/sq cm. T score -2.2. WHO classification: Osteopenia. Bone mineral density dual femoral trochanters measures 0.715 g/sq cm. T score -1.2. WHO classification: Osteopenia IMPRESSION: Osteopenia. Moderate fracture risk Electronically authenticated by: AIRAM HASSAN Date: 2021-03-09 12:17 Normal [facility] Encounters Encounter Date Encounter Type Care Provider Facility Start: 06-06-2021 End: 06-06-[address] CLEMENTINE FORREST Facility:[facility] Start: 04-30-2021 Encounter for genera l adult medical examination without abnormal findings DR CLEMENTINE FORREST [facility] Start: 04-25-2021 End: 04-26-[address] CLEMENTINE FORREST Facility:[facility] Start: 04-25-2021 End: 04-26-2021 Encounter for general adult medical examination without abnormal findings DR CLEMENTINE FORREST Facility:[facility] Start: 03-09-2021 End: 03-10-[address] CLEMENTINE FORREST Facility:[facility] Payers Date Payer Category Payer Medicare [id number] 1958 Unknown [id number] 1955 Unknown [id number] 1955 Unknown [id number] 1955 Unknown [id number] Summary Purpose Family History No Family History Records FoundNo Family History Records Found Advance Directives No Advanced Directives Records FoundNo Advanced Directives Records Found Additional Source Comments INFORMATION SOURCE (unrecogn ized section and content) DATE CREATED AUTHOR 05/20/2021 [employer] DATE CREATED AUTHOR AUTHOR'S ORGANIZ ATION 06/30/2021 The Cathryn par[facility] FOR RECORDS PERTAINING TO PATIENTS WHO ARE OR HAVE BEEN ENROLLED IN A CHEMICAL DEPENDENCY/SUBSTANCEABUSE PROGRAM, SOME INFORMATION MAY BE OMITTED. This clinical summary was aggregated from multiple sources. Caution should be exercised in using it in the provision of clinical care. This summary normalizes information from multiple sources, and as a consequence, information in this document may materially change the coding, format and clinical context of patient data. In addition, data may be omitted in some cases. CLINICAL DECISIONS SHOULD BE BASED ON THE PRIMARY CLINICAL RECORDS. [employer] [facility] [employer] [facility]. provides no warranty or guarantee of the accuracy or completeness of information in this document.
== END 2025-01-27 15:51 | disposition home or self-care (01) ==
LOC: RAD 15:52
PROVIDERS: PCP Family Medicine; Visit Provider Family Medicine
DX: M25.551 Pain in right hip (principal); G89.29 Other chronic pain; M54.2 Cervicalgia
CPT/HCPCS: 72050; 73502